=== PATIENT | female | born 1945 | race Asian ===

== ENCOUNTER 2023-01-27 06:35 | Day surgery (SDC) | payer BC ==
[2023-01-26 14:43] VITALS: BMI 17.7
[~2023-01-27 06:35] MED LIST: EPINEPHrine 0.3 MG in Ophthalmic Irrigation Solution 500 ML IRR SCH
[2023-01-27] MEDS ORDERED: PHENYLephrine 2.5% Ophth Soln 15 ml Bottle ONE (07:02)
[2023-01-27] MEDS ORDERED: Cyclopentolate 1% Opth Drop 2 ML BOT ONE (07:02)
[2023-01-27] MEDS ORDERED: fentaNYL 50 mcg/mL 1 mL Vial ONE (08:55)
[2023-01-27] MEDS ORDERED: Midazolam HCl 2 mg/2 ml Vial ONE (08:55)
[2023-01-27] MEDS ORDERED: CEFAZOLIN 1 GM VIAL ONE (09:07)
[2023-01-27] MEDS ORDERED: PROPOFOL 200 MG/20 ML VIAL ONE (09:07)
[2023-01-27] MEDS ORDERED: Triamcinolone 40 MG/ML VIAL ONE (09:07)
[2023-01-27] MEDS ORDERED: Indocyanine Green 25 MG/10 ML VIAL ONE (09:07)
[2023-01-27] MEDS ORDERED: Bupivacaine 0.75% 10 ML VIAL ONE (09:07)
[2023-01-27] MEDS ORDERED: Lidocaine 1% PF 5 ML VIAL ONE (09:07)
[2023-01-27] MEDS ORDERED: Lidocaine 4% PF 5 ML AMP ONE (09:07)
[2023-01-27] MEDS ORDERED: Maxitrol 0.1% Opth Oint 3.5 GM TUBE ONE (09:07)
== END 2023-01-27 10:44 | disposition home or self-care (01) ==
LOC: SDC 06:35
PROVIDERS: ATTEND Ophthalmology Retina Specialist
PROC: 08T53ZZ Resection of Left Vitreous, Percutaneous Approach (ICD-10-PCS; principal; 2023-01-27)
DX: H35.342 Macular cyst, hole, or pseudohole, left eye (principal)
CPT/HCPCS: 67025; J0171; J0690; J2250; J2704; J3010; J3301; J3490